=== PATIENT | female | born 1980 | race Caucasian/White ===

== ENCOUNTER 2017-09-08 05:05 | Inpatient (IN) | payer OTHER ==
[2017-09-05 13:12] VITALS: BMI 22.8
[2017-09-08] MEDS ORDERED: IBUPROFEN 800 MG/8 ML IJ IVPB PRN (07:34)
--- NOTE | 2017-09-08 07:34 | HP ---
Satellite PMH - Chief Complaint Chief Complaint: Leiomyomatous Uterus History of Present Illness: Leiomyomatous Uterus. Abdominal pain. 37 yo Go LMP 08/12/17 with co of abdominal pain and leiomyomatous uterus for abdominal myomectomy Limitations to Obtaining History: No Limitations - Past Medical History Allergies/Adverse Reactions: Allergies Allergy/AdvReac Type Severity Reaction Status Date / Time No Known Allergies Allergy Verified 10/08/14 13:08 ...LMP: 08/12/17 ...LMP Comment: 08/12/17 ...: No ...: 0 Additional Medical History: anxiety disorder - Current Medications Current Medications: Home Medications Medication Instructions Recorded Ibuprofen [Motrin -] 800 mg PO TID PRN #30 tablet 10/08/14 Acetaminophen [Tylenol -] 1,000 mg PO Q6H PRN 09/05/17 Ascorbic Acid [Vitamin C -] 500 mg PO DAILY 09/05/17 Satellite Physical Exam - Physical Examination Vital Signs: Vital Signs Period Temp Pulse Resp BP Sys/Cornejo Pulse Ox Last 24 Hr 98.4 F 75 20 120/77 100 General Appearance: Well Nourished, Well Developed ENT: Clear Lung: Clear to auscultation Heart: Regular rate & rhythm Breasts: Soft, Non-Tender Abdomen: Soft, No tenderness Extremities: No edema Pelvic Exam: Within normal limits External Genitalia, Within normal limits Vagina, Within normal limits Cervix, Within normal limits [place], Other Uterus (enlarged) Neurological: Intact, Alert, Oriented Satellite Impression/Plan - Impression/Plan Impression: Leiomyomatous Uterus. Abdominal Pain. Intramural myomas Operative Procedure: Abdominal myomectomy Date to be Performed: 09/08/17
[2017-09-08] MEDS ORDERED: ACETAMINOPHEN 325 MG TABLET (FP) PO PRN (07:35)
[2017-09-08] MEDS ORDERED: VASOPRESSIN 20 UNITS/ML VIAL IV ONE (07:57)
[2017-09-08] MEDS ORDERED: ROCURONIUM BROMIDE 50 MG/5 ML VIAL ONE (08:01)
[2017-09-08] MEDS ORDERED: MIDAZOLAM HCL 2 MG/2 ML SINGLE DOSE VIAL ONE (08:01)
[2017-09-08] MEDS ORDERED: PROPOFOL 20 ML ONE (08:01)
[2017-09-08] MEDS ORDERED: ceFAZolin SODIUM 1 GM VIAL ONE (08:22)
[2017-09-08] MEDS ORDERED: SODIUM CHLORIDE 0.9% P/F 10 ML VIAL IJ ONE (08:22)
[2017-09-08] MEDS ORDERED: DEXAMETHASONE SOD PHOSPHATE 4 MG/1 ML VIAL ONE (08:24)
[2017-09-08] MEDS ORDERED: ceFAZolin SODIUM 1 GM VIAL IVPB ONE (08:28)
[2017-09-08] MEDS ORDERED: KETOROLAC TROMETHAMINE 30 MG/1 ML VIAL ONE (09:11)
[2017-09-08] MEDS ORDERED: GLYCOPYRROLATE 0.2 MG/1 ML VIAL ONE (09:12)
[2017-09-08] MEDS ORDERED: NEOSTIGMINE METHYLSULFATE 0.5 MG/ML - 10 ML MDV ONE (09:12)
[2017-09-08] MEDS ORDERED: PROMETHAZINE HCL 25 MG/1 ML VIAL IVPB PRN (09:46)
[2017-09-08] MEDS ORDERED: ONDANSETRON 4 MG/2 ML VIAL IVPUSH PRN (09:46)
[2017-09-08] MEDS ORDERED: DEXAMETHASONE SOD PHOSPHATE 4 MG/1 ML VIAL IVPUSH PRN (09:46)
--- NOTE | 2017-09-08 09:48 | OP ---
Operative Note - Note: Operative Date: 09/08/17 Pre-Operative Diagnosis: leimyomatous uterus, abdominal pain Operation: open abdominal myomectomy Surgeon: Althea Leal Business Services Administrator: Cynthia Díaz Anesthesiologist/CIRCULATION SUPERVISOR: Ru Whatley Anesthesia: General Specimens Removed: leiomyomas of the uterus Estimated Blood Loss (mls): 30 Drains, Volume Out (mls): 250 (álvarez) Fluid Volume Replaced (mls): 800 Operative Report Dictated: Yes
--- NOTE | 2017-09-08 09:51 | SURG ---
Surgery Record Label Internship Note Record Label Internship: Cynthia Díaz PA-C Date of Service: 09/08/17 Diagnosis: leiomyomatous uterus Procedure: open abdominal myomectomy I was present for the entirety of the operative procedure. For further detail, please refer to operative report. Visit type - Case Type Case Type: Scheduled - Emergency Emergency Visit: No - New patient This patient is new to me today: Yes Date on this admission: 09/08/17
[2017-09-08] MEDS ORDERED: LACTATED RINGERS SOLUTION 1,000 ML IV SCH (10:00)
[2017-09-08] MEDS ORDERED: HYDROmorphone *PCA* 10MG/50ML DISP.SYRIN PCA SCH (10:00)
[2017-09-08] MEDS ORDERED: HYDROmorphone *PCA* 10MG/50ML DISP.SYRIN PCA ONE (10:12)
[2017-09-08] MEDS ORDERED: PROMETHAZINE HCL 25 MG/1 ML VIAL ONE (10:54)
--- NOTE | 2017-09-08 11:24 | OP ---
DATE OF OPERATION: 09/08/2017 PREOPERATIVE DIAGNOSIS: Leiomyomatous uterus. OPERATION: Abdominal myomectomy. POSTOPERATIVE DIAGNOSIS: Leiomyomatous uterus. SURGEON: Shivam Lael MD BRACE MAKER: NOMI Avalos ANESTHESIA: General. ANESTHESIOLOGIST: Ru Whatley MD ESTIMATED BLOOD LOSS: 20 mL. DESCRIPTION OF PROCEDURE: The patient was taken to the operating room and placed in supine position, prepped and draped in the usual sterile fashion. A time-out was performed in accordance with hospital regulation. A Pfannenstiel skin incision was made with a scalpel. Cautery was then used to cut through layers of the abdominal wall to the level of the fascia. The fascia was cut in the midline. Cautery was then used to open the fascia in smiling fashion. Kochers were then used to bluntly and sharply dissect the rectus muscle off the fascia. Muscle was split in the midline. Peritoneal cavity was then entered and carried upward and downward. Abdominal packing was then used to pack the bowel out of the operative field. The uterus was then exteriorized, and a 6-cm pedunculated myoma was noted as well as a 2-cm anterior myoma and 1-cm myoma. Pitressin was then infiltrated into the serosa of the uterus circumferentially around the pedunculated myoma. Cautery was then used to cut the myoma serosa, and blunt and sharp technique was then used to remove the myoma and submitted to Pathology. The muscle was then approximated using 0 Biosyn suture, and V-Lock suture was then used to close the serosa of the uterus with 2-0 V-Lock suture. Attention was then drawn to the 2 myomas anteriorly where cautery was then used to enter the serosa after Pitressin was infiltrated, and enucleation of the myomas was then performed. Cautery and cutting of the muscle of the uterus was done, and the muscle was closed in a continuous locking suture using 0 Vicryl sutures. V-Lock suture was then used to close the serosa of the uterus. Posteriorly, another small 5-mm myoma was noted and submitted and removed using sharp technique, and incision was then closed with a [id number] suture with 2-0 Vicryl suture. Hemostasis was achieved. Interceed was placed and secured on the 6-cm myoma that had been removed. Uterus anteriorized. Packing was removed. Abdominal sweep done. The peritoneal cavity was then closed using 0 Vicryl suture. The fascia was then closed using 0 Vicryl suture in 2 parts. The subsequent was closed using interrupted using 2-0 Vicryl suture, and the skin was then closed using 3-0 Biosyn suture in subcuticular fashion. The wound was washed and dressed. The patient tolerated the procedure well. Estimated blood loss 20 mL. SHIVAM LEAL M.D. AHSAN/[id number]
[2017-09-08] MEDS: CEFAZOLIN 1 GM in DEXTROSE 5%-WATER - 50 ML IVPB SCH (18:11)
[2017-09-09] MEDS: CEFAZOLIN 1 GM in DEXTROSE 5%-WATER - 50 ML IVPB SCH (01:27)
[2017-09-09] MEDS ORDERED: oxyCODONE HCL 5 MG TABLET PO PRN (07:35)
[2017-09-09 08:35] LABS: BASO % 0.3 % (0-2.0); EOS % 0.2 % (0-4.5); HEMATOCRIT 28.8 % (32.4-45.2); HEMOGLOBIN 9.7 GM/dL (10.7-15.3); LYMPH % 34.1 % (8-40); MCH 30.2 pg (25.7-33.7); MCHC 33.7 g/dl (32.0-36.0); MEAN CELL VOLUME 89.6 fl (80-96); MEAN PLT VOLUME 10.1 fl (7.5-11.1); MONO % 6.3 % (3.8-10.2); NEUT % 59.1 % (42.8-82.8); PLATELET COUNT 185 K/MM3 (134-434); RBC 3.22 M/mm3 (3.60-5.2); RDW 13.6 % (11.6-15.6); WHITE BLOOD COUNT 6.6 K/mm3 (4.0-10.0)
[2017-09-09 09:04] LABS: CHLORIDE 106 mmol/L (98-107); POTASSIUM 3.6 mmol/L (3.5-5.1); SODIUM 141 mmol/L (136-145)
[2017-09-09 09:35] LABS: ANION GAP 9 (8-16); BLOOD UREA NITROGEN 6 mg/dL (7-18); CO2 26 mmol/L (21-32); CREATININE 0.6 mg/dL (0.55-1.02); GLUCOSE,RANDOM 81 mg/dL (74-106)
[2017-09-09] MEDS ORDERED: ENOXAPARIN NA (PORCINE) 40 MG/0.4 ML DISP.SYRIN SQ SCH (10:00)
[2017-09-09] MEDS ORDERED: PCA PUMP KEY 1 EACH EACH ONE ×2 (10:45→10:50)
[2017-09-09] MEDS: IBUPROFEN 600 MG TABLET (FP) PO PRN ×2 (11:42→16:03)
[2017-09-09] MEDS: oxyCODONE HCL 5 MG TABLET PO PRN ×2 (12:40→16:03)
[2017-09-09] MEDS: SIMETHICONE 80 MG TAB.CHEW (FP) PO PRN ×2 (12:41→16:03)
[2017-09-09 12:58] VITALS: BP 112/57; PULSE 63; TEMP 98.2
--- NOTE | 2017-09-09 13:28 | PN ---
Progress Note, Physician Chief Complaint: Post op History of Present Illness: 37 yo with h/o fibroid uterus, is status post abdominal hysterectomy. She's seen and evaluated. Doing well. - Current Medication List Current Medications: Active Medications Acetaminophen (Tylenol -) 650 mg PO Q4H PRN PRN Reason: FEVER Last Admin: 09/09/17 09:18 Dose: 650 mg Dexamethasone Sodium Phosphate (Decadron Injection -) 4 mg IVPUSH ONCE PRN PRN Reason: NAUSEA AND/OR VOMITING Diphenhydramine HCl (Benadryl Injection -) 12.5 mg IVPUSH ONCE PRN PRN Reason: FOR ITCHING Enoxaparin Sodium (Lovenox -) 40 mg SQ DAILY [facility] Last Admin: 09/09/17 09:20 Dose: 40 mg Lactated Ringer's (Lactated Ringers Solution) 1,000 mls @ 125 mls/hr IV ASDIR [facility] Last Admin: 09/08/17 10:25 Dose: 200 mls Ibuprofen (Caldolor Injection -) 800 mg IVPB Q8H PRN PRN Reason: FEVER Ibuprofen (Motrin -) 600 mg PO Q4H PRN PRN Reason: PAIN LEVEL 3-5 Last Admin: 09/09/17 11:42 Dose: 600 mg Ondansetron HCl (Zofran Injection) 4 mg IVPUSH Q4H PRN PRN Reason: NAUSEA AND/OR VOMITING Oxycodone HCl (Roxicodone -) 10 mg PO Q4H PRN PRN Reason: PAIN LEVEL 7 - 10 Oxycodone HCl (Roxicodone -) 5 mg PO Q4H PRN PRN Reason: PAIN SCALE 6-7 Last Admin: 09/09/17 12:40 Dose: 5 mg Promethazine HCl (Phenergan Injection -) 12.5 mg IVPB Q6H PRN PRN Reason: NAUSEA AND/OR VOMITING Last Admin: 09/08/17 11:25 Dose: 6.25 mg Simethicone (Mylicon -) 80 mg PO Q4H PRN PRN Reason: GAS Last Admin: 09/09/17 12:41 Dose: 80 mg - Objective Vital Signs: Vital Signs Temperature 98.2 F 09/09/17 10:00 Pulse Rate 63 09/09/17 10:00 Respiratory Rate 18 09/09/17 10:00 Blood Pressure 112/57 09/09/17 10:00 O2 Sat by Pulse Oximetry (%) 100 09/08/17 12:53 Constitutional: Yes: Well Nourished Eyes: Yes: Conjunctiva Clear Neck: Yes: Supple Cardiovascular: Yes: Regular Rate and Rhythm Respiratory: Yes: Regular, CTA Bilaterally Gastrointestinal: Yes: Normal Bowel Sounds Extremities: No: Calf Tenderness Wound/Incision: Yes: Clean/Dry, Dressing Dry and Intact Neurological: Yes: Alert, Oriented ...Motor Strength: WNL Psychiatric: Yes: Alert, Oriented Labs: CBC, BMP 09/09/17 07:45 09/09/17 07:45 Problem List - Problems (1) Status post myomectomy Code(s): Z98.890 - OTHER SPECIFIED POSTPROCEDURAL STATES Assessment/Plan Status post abdominal myomectomy Stable Ambulation Analgesia as needed Continue post op care
--- NOTE | 2017-09-09 14:43 | PN ---
Progress Note, Physician Chief Complaint: Pt. pain controlled, no GA complaints. - Current Medication List Current Medications: Active Medications Acetaminophen (Tylenol -) 650 mg PO Q4H PRN PRN Reason: FEVER Last Admin: 09/09/17 09:18 Dose: 650 mg Dexamethasone Sodium Phosphate (Decadron Injection -) 4 mg IVPUSH ONCE PRN PRN Reason: NAUSEA AND/OR VOMITING Diphenhydramine HCl (Benadryl Injection -) 12.5 mg IVPUSH ONCE PRN PRN Reason: FOR ITCHING Enoxaparin Sodium (Lovenox -) 40 mg SQ DAILY [facility] Last Admin: 09/09/17 09:20 Dose: 40 mg Lactated Ringer's (Lactated Ringers Solution) 1,000 mls @ 125 mls/hr IV ASDIR [facility] Last Admin: 09/08/17 10:25 Dose: 200 mls Ibuprofen (Caldolor Injection -) 800 mg IVPB Q8H PRN PRN Reason: FEVER Ibuprofen (Motrin -) 600 mg PO Q4H PRN PRN Reason: PAIN LEVEL 3-5 Last Admin: 09/09/17 11:42 Dose: 600 mg Ondansetron HCl (Zofran Injection) 4 mg IVPUSH Q4H PRN PRN Reason: NAUSEA AND/OR VOMITING Oxycodone HCl (Roxicodone -) 10 mg PO Q4H PRN PRN Reason: PAIN LEVEL 7 - 10 Oxycodone HCl (Roxicodone -) 5 mg PO Q4H PRN PRN Reason: PAIN SCALE 6-7 Last Admin: 09/09/17 12:40 Dose: 5 mg Promethazine HCl (Phenergan Injection -) 12.5 mg IVPB Q6H PRN PRN Reason: NAUSEA AND/OR VOMITING Last Admin: 09/08/17 11:25 Dose: 6.25 mg Simethicone (Mylicon -) 80 mg PO Q4H PRN PRN Reason: GAS Last Admin: 09/09/17 12:41 Dose: 80 mg - Objective Vital Signs: Vital Signs Temperature 98.2 F 09/09/17 10:00 Pulse Rate 63 09/09/17 10:00 Respiratory Rate 18 09/09/17 10:00 Blood Pressure 112/57 09/09/17 10:00 O2 Sat by Pulse Oximetry (%) 100 09/08/17 12:53 Constitutional: Yes: Well Nourished, No Distress, Calm Musculoskeletal: Yes: WNL Neurological: Yes: WNL, Alert, Oriented Labs: CBC, BMP 09/09/17 07:45 09/09/17 07:45 Assessment/Plan POD#1 s/p abdominal myomectomy under GA with Dilaudid COVERAGE ANALYST for postoperative pain control. Doing well D/C COVERAGE ANALYST and from anesthesia care.
--- NOTE | 2017-09-10 10:30 | PATH ---
Surgical Pathology Report Patient Name: JOAN SHAIKH [facility]. Rec. #: [id number] /Age/Gender: 1980 (Age: 37) / F Account: [id number] Location: [facility] OBS/YARN MAN Taken: 09/08/2017 Received: 09/08/2017 Reported: 09/10/2017 Physicians: Althea Leal M.D. Specimen(s) Received UTERINE MYOMAS Clinical History Leiomyomatous uterus Final Diagnosis UTERUS, MYOMAS, ABDOMINAL MYOMECTOMY: LEIOMYOMA. Electronically Signed Vee Farfan M.D. Gross Description Received in formalin labeled "uterine myomas" is a pink-morales rubbery soft tissue weighing 119 g and measuring 8 x 6 x 5 cm. Portion of specimen is covered by a smooth serosal surface. Cut section shows morales, rubbery, and whorled surface. No hemorrhage or necrosis identified. Consulting Services Associate sections are submitted in 5 cassettes. ALTON/09/08/2017 glenis/09/08/2017
== END 2017-09-09 16:10 | disposition home or self-care (01) | DRG 743 ==
LOC: JASUSAT 05:05 → JSAMEDAYSX 07:35 → EDSTATUS 08:00 → J3W 11:57
PROVIDERS: ADMIT Obstetrics & Gynecology; ATTEND Obstetrics & Gynecology
PROC: 0UB90ZZ Excision of Uterus, Open Approach (ICD-10-PCS; principal; 2017-09-08 08:00)
DX: D25.1 Intramural leiomyoma of uterus (principal)
CPT/HCPCS: 36415; 80048; 84703; 85025; 86850; 86900; 86901; 88305-TC; 94010; 94760